=== PATIENT | male | born 1980 | race Caucasian/White ===

== ENCOUNTER 2016-11-02 04:46 | Emergency (ER) | payer BC ==
[~2016-11-02] VITALS: Ht 167.6 cm; Wt 64.4 kg
[~2016-11-02 04:46] MED LIST: NOHOMEMEDS
[2016-11-02] MEDS ORDERED: TRAMADOL HCL50 MG PO (06:14)
[2016-11-02 07:01] VITALS: BP 120/61
== END 2016-11-02 07:02 | disposition home or self-care (01) ==
LOC: EME 04:46
PROC: 3E0234Z Introduction of Serum, Toxoid and Vaccine into Muscle, Percutaneous Approach (ICD-10-PCS; principal; 2016-11-02)
PROC: 0HQFXZZ Repair Right Hand Skin, External Approach (ICD-10-PCS; principal; 2016-11-02)
DX: S61.411A Laceration without foreign body of right hand, initial encounter (principal); S60.221A Contusion of right hand, initial encounter; Z23 Encounter for immunization; W22.8XXA Striking against or struck by other objects, initial encounter
CPT/HCPCS: 73130; 99281; 99284